=== PATIENT | female | born 1955 | race Caucasian/White ===

== ENCOUNTER → 2016-09-07 | Outpatient (CLI) | payer BC ==
[~2016-09-07] MED LIST: ADVAIR 1001 DISK W/D; ALBUTEROL17 GM; ALLEGRA; CIPRO PO; DEMEROL PO; IBUPROFEN; LODINE; MULTI-VITAMIN1 TAB; NASONEX17 GM; OYSTER CALCIUM500 MG; PHENERGAN PO; PHENERGAN PR; SINGULAIR; VICODIN 5/500 T1 TAB PO; ZOCOR
--- NOTE | ~2016-09-07 | MY11 ---
[facility] A Service of [facility] RADIOLOGY TEXT RESULTS PATIENT: HENRIQUE VILLAR LOCATION: [facility] : 55 UNIT #: [id number] AGE: [address]: Rip Vidal MD SEX: F ORDER DR: [id number] [facility]. [place], [place] [address] [id number] O MR#: [id number] Acc #: [id number] NAME: HENRIQUE VILLAR : 1955 SEX: F STUDY DATE/TIME: 09/07/2016 13:00 UNIT: [facility] ROOM: STUDY DESCRIPTION: MY Mammogram Screening Dig Ritchie Attending Physician: Rip Vidal M.D. Referring Physician: Rip Vidal M.D. Ordering Physician: Rip Vidal M.D. Primary Care Physician: Rip Vidal M.D. MEDICAL IMAGING REPORT This report is preliminary unless electronic signature is present EXAM Bilateral digital screening mammogram with CAD. INDICATION Routine screening. No current complaints. No family history of breast cancer. COMPARISON STUDIES 04/07/2015, 09/07/2012, 08/22/2011 TECHNIQUE MLO and CC digital views were obtained. The exam was reviewed with an FDA-approved CAD device. FINDINGS There are scattered fibroglandular densities. There are no masses or abnormal calcifications. IMPRESSION No change. No evidence of malignancy. Patients over the age of 40 are entered into a reminder system with target due date for the next mammogram. A result letter will also be sent to the patient. BIRADS: 2 Benign finding. Dictated by... Shen Hoffman M.D. THIS IS AN ELECTRONICALLY VERIFIED REPORT [facility] A Service [facility] & [facility] RADIOLOGY TEXT RESULTS PATIENT: HENRIQUE VILLAR LOCATION: [facility] : 55 UNIT #: [id number] AGE: [address]: Rip Vidal MD SEX: F ORDER DR: Shen Hoffman M.D. at 09/07/2016 4:55 PM TORSTEN/nima TD: 09/07/2016 16:00 JOB #: [id number] MEDICAL IMAGING REPORT COPY
== END | disposition home or self-care (01) ==
LOC: CWCC 12:27
DX: Z12.31 Encounter for screening mammogram for malignant neoplasm of breast (principal)
CPT/HCPCS: G0202

== ENCOUNTER → 2016-11-18 | Outpatient (CLI) | payer BC ==
--- NOTE | ~2016-11-18 | CR63 ---
[facility] A Service of [facility] & [facility] RADIOLOGY TEXT RESULTS PATIENT: HENRIQUE VILLAR LOCATION: [facility] : 55 UNIT #: [id number] AGE: [address]: Bsailio Fan MD SEX: F ORDER DR: [id number] [facility] [address] [place], [place] [address] [id number] O MR#: [id number] Acc #: [id number] NAME: HENRIQUE VILLAR : 1955 SEX: F STUDY DATE/TIME: 11/18/2016 14:18 UNIT: [facility] ROOM: STUDY DESCRIPTION: CR Chest 2 View Attending Physician: Jn Fan M.D. Ordering Physician: Jn Fan M.D. Primary Care Physician: Rip Vidal M.D. MEDICAL IMAGING REPORT This report is preliminary unless electronic signature is present EXAMINATION PA and lateral chest. DATE 11/18/2016 HISTORY 61-year-old female with asthma. Allergic rhinitis. Dyspnea, unspecified. Patient states cough, shortness of breath and chronic bronchitis for 6 months. COMPARISON 05/23/2006. FINDINGS There is severe thoracic dextroscoliosis. There is stable mild cardiac enlargement. Lungs appear free of acute airspace disease. Heart size is stable and thought to be within normal limits. No pleural effusion or pneumothorax or acute osseous abnormalities are identified. Study is attenuated by patient's body habitus in the lateral view. IMPRESSION 1. No acute chest findings. 2. Severe thoracic dextroscoliosis. Dictated by... Blank Davenport M.D. THIS IS AN ELECTRONICALLY VERIFIED REPORT Blank Davenport M.D. at 11/21/2016 8:33 AM [facility]/segundo [facility] A Service of [facility] & [facility] RADIOLOGY TEXT RESULTS PATIENT: HENRIQUE VILLAR [id number] : 55 UNIT #: [id number] AGE: [address]: Basilio Fan MD SEX: F ORDER DR: TD: 11/18/2016 20:48 JOB #: [id number] MEDICAL IMAGING REPORT Page 1 of 1 COPY
== END | disposition home or self-care (01) ==
LOC: CRAD 14:03
DX: J45.40 Moderate persistent asthma, uncomplicated (principal); J30.89 Other allergic rhinitis; J30.1 Allergic rhinitis due to pollen; R06.00 Dyspnea, unspecified; M41.9 Scoliosis, unspecified
CPT/HCPCS: 71020

== ENCOUNTER → 2017-03-07 | Outpatient (CLI) | payer BC | END | disposition home or self-care (01) | LOC: CECH 10:27 | DX: R06.00 Dyspnea, unspecified (principal); I34.0 Nonrheumatic mitral (valve) insufficiency; I35.1 Nonrheumatic aortic (valve) insufficiency; I37.1 Nonrheumatic pulmonary valve insufficiency | CPT/HCPCS: 93306 ==